=== PATIENT | female | born 1965 | race Caucasian/White ===

== ENCOUNTER 2018-06-25 19:43 | Emergency (ER) | payer SELFPAY ==
[~2018-06-25] VITALS: Ht 167.6 cm; Wt 97.0 kg
[2018-06-25 19:58] VITALS: BP 130/85
[2018-06-25] MEDS ORDERED: ONDANSETRON ODT 4 MG PO ONE (20:00)
--- NOTE | 2018-06-25 20:21 | NUR ---
PT PRESENTS TO ED WITH LOWER ABD PAIN, "MY JUST TOLD ME HE LEFT SOMETING UP THERE A FEW DAYS AGO WHEN I TOLD HIM I HAD A STOMACH ACHE", STATES HE TRIED TO FIND IT AND HAS BEEN HAVING NAUSEA SINCE THEN. ALSO TODAY PT STATES SHE WAS GARDENING AND TWISTED HER BACK AND L KNEE. PA AT BEDSIDE. PT PLACED ON MONITOR. CALL LIGHT WITHIN REACH
[2018-06-25] MEDS ORDERED: PLEASE ENTER HEIGHT AND WEIGHT MC SCH (20:30)
[2018-06-25] MEDS ORDERED: PLEASE ENTER ALLERGIES MC SCH (20:30)
[2018-06-25 20:44] LABS: BASOPHILS # (AUTO) 0.06 x10^3/uL (0-0.1); BASOPHILS % (AUTO) 1 % (0-1); EOSINOPHILS # (AUTO) 0.25 x10^3/uL (0-0.4); EOSINOPHILS % (AUTO) 3 % (1-7); LYMPHOCYTES # (AUTO) 3.16 x10^3/uL (1-3.4); LYMPHOCYTES % (AUTO) 34 % (22-44); MD NO; MEAN CORPUSCULAR HEMOGLOBIN 29.5 pg (27.0-34.8); MEAN CORPUSCULAR HGB CONC 34.1 g/dL (32.4-35.8); MEAN CORPUSCULAR VOLUME 86.5 fL (80-100); MEAN PLATELET VOLUME 8.7 fL (7.4-10.4); MONOCYTES # (AUTO) 0.76 x10^3/uL (0.2-0.8); MONOCYTES % (AUTO) 8 % (2-9); NEUTROPHILS # (AUTO) 4.97 x10^3/uL (1.8-6.8); NEUTROPHILS % (AUTO) 54 % (42-75); PLATELET COUNT 311 x10^3/uL (130-400); RED BLOOD COUNT 5.37 x10^6/uL (3.82-5.3); RED CELL DISTRIBUTION WIDTH 13.6 % (9.6-15.2)
[2018-06-25 20:53] LABS: ALANINE AMINOTRANSFERASE 27 U/L (12-78); ALBUMIN 3.5 g/dL (3.4-5.0); ANION GAP 6 mmol/L (5-15); CALCIUM 8.7 mg/dL (8.5-10.1); CHLORIDE 112 mmol/L (98-107); CREATININE 0.82 mg/dL (0.55-1.02)
--- NOTE | 2018-06-25 20:56 | NUR ---
PA AT BEDSIDE FOR PELVIC EXAM
[2018-06-25 20:57] LABS: ALKALINE PHOSPHATASE 93 U/L (45-117); BILIRUBIN,TOTAL 0.1 mg/dL (0.2-1.0); TOTAL PROTEIN 6.7 g/dL (6.4-8.2)
--- NOTE | 2018-06-25 21:16 | NUR ---
PT BACK FROM RAD
[2018-06-25] MEDS ORDERED: ONDANSETRON ODT 4 MG ONE (21:30)
[2018-06-25 21:36] LABS: MICROSCOPIC NOT IND
[2018-06-25 21:50] LABS: CULTURE INDICATED? NO
== END 2018-06-25 22:15 | disposition home or self-care (01) ==
LOC: ED 22:04
DX: T19.2XXA Foreign body in vulva and vagina, initial encounter (principal); G89.11 Acute pain due to trauma; M54.5 Low back pain; M25.561 Pain in right knee; R10.84 Generalized abdominal pain; F17.200 Nicotine dependence, unspecified, uncomplicated; W01.0XXA Fall on same level from slipping, tripping and stumbling without subsequent striking against object, initial encounter; Y93.89 Activity, other specified; Y92.89 Other specified places as the place of occurrence of the external cause; Y99.8 Other external cause status
CPT/HCPCS: 36415; 72110; 80053; 81003; 83690; 84703; 85025; 99284

== ENCOUNTER 2019-03-15 09:12 | Emergency (ER) | payer SELFPAY ==
--- NOTE | 2019-03-15 09:28 | NUR ---
PT NO ANSWER FROM TRIAGE
--- NOTE | 2019-03-15 09:35 | NUR ---
NO ANSWER FROM TRIAGE
== END 2019-03-15 09:43 | disposition left against medical advice (07) ==
LOC: ED 09:40
DX: F41.9 Anxiety disorder, unspecified (principal); Z53.21 Procedure and treatment not carried out due to patient leaving prior to being seen by health care provider